=== PATIENT | female | born 2000 | race Caucasian/White ===

== ENCOUNTER 2024-12-18 08:43 | Emergency (ER) | payer OTHER, SELFPAY ==
[2024-12-18 08:46] VITALS: BP 138/78
[2024-12-18 09:00] VITALS: BP 134/89
--- NOTE | 2024-12-18 09:04 | ED.GENMED ---
History of Present Illness
General
Chief Complaint: Seizure
Time Seen by Provider: 12/18/24 09:03
History of Present Illness
History of Present Illness:
TIME OF INITIAL ENCOUNTER: 9 AM
HPI: Patient presents with seizure and has history of seizures. She was getting ready to go to her graduation at [employer] (grad school). She had a witnessed seizure. She bit her tongue. She feels somewhat confused currently. She normally takes
Lamictal 200 mg in the mornings and 400 mg at nighttime. She is not certain if she took her morning dose of Lamictal yet. She struck her head and has a headache. She denies any benzo or alcohol use. She is known to the neurologists at [facility] and
sees them once per year as she has not had a seizure now since 2019.
EXAM:
GENERAL: Appears postictal and just slightly confused
HEENT: Moist oral mucosa
CARDIOVASCULAR: No murmurs, tachycardic heart rate, regular rhythm, No chest wall tenderness
PULMONARY: No respiratory distress, breath sounds are clear and equal
ABDOMEN: Soft with no peritoneal signs, no tenderness
NEUROLOGIC: Fair strength all extremities, no coordination deficits
PSYCHIATRIC: Patient gives a reasonable history but details/memory are somewhat impaired
EXTREMITIES: Nontender, no edema, moves all extremities equally
SKIN: No rash, no lesions
NUMBER AND COMPLEXITY OF PROBLEMS ADDRESSED AT THE ENCOUNTER
� Chronic conditions affecting care: Seizure disorder
� Acute Exacerbation and/or Progression of Chronic Illness: This is an acute problem
� Differential Diagnosis includes: Breakthrough seizure, patient denies history of benzo/alcohol use to suggest withdrawal seizure, intracranial pathology
AMOUNT AND/OR COMPLEXITY OF DATA TO BE REVIEWED AND ANALYZED
� I performed an independent evaluation of and my interpretation is:
EKG:
CT: CAT scan of the brain shows no acute abnormality
X-rays:
Laboratory Studies: White count 4.6, hemoglobin normal, chemistries and hCG negative
Other:
� Review of other/old records: No old records available for review in [facility]
� Clinical information was obtained by an independent historian: I spoke to parents, at bedside
� Prescriptions/Medications Considered but not given:
� Further testing considered but not performed:
RISK OF COMPLICATIONS AND/OR MORBIDITY OR MORTALITY OF PATIENT MANAGEMENT
� Social determinants of health affecting care: Lives at home
� Discussion with other providers: I did notify the covering neurologist at [facility] for Dr. Lechuga. We had planned on increasing the Lamictal XR dosing to 300 mg in the mornings and continue the evening dose of 400 mg.
� Escalation of care including admission/observation vs risk of discharge considered: I later spoke to family and they tell me that she was up all night. She was to graduate [employer] today. Family states that when she was sleep
deprived in the past, she did have a seizure. Her mental status has been improving but headache persists despite Tylenol. No seizures while in the Emergency Department.
ANY OTHER UPDATES:
Phy Exam
Physical Exam
Physical Exam:
See HPI
Course
Orders/Labs/Results
Orders:
Orders
12/18/24 09:09
0.9% Sodium Chloride 1000 ml [Nss] 1,000 ml IV BOLUS
12/18/24 09:10
CT Head W/o Iv Contrast Urgent
Comment:
Reason For Exam: sz then head trauma; BALTAZAR
Test Result ONCE
12/18/24 09:32
Lamotrigine [Lamictal] 200 mg PO NOW STA
12/18/24 09:36
Complete Blood Count/With Diff Urgent
Comprehensive Metabolic Panel Urgent
HCG, Serum Qualitative Screen Urgent
Lamictal [Lamotrigine (Lamictal)] [S] Urgent
12/18/24 09:38
Acetaminophen [Tylenol] 1,000 mg PO NOW STA
12/18/24 09:44
Ipratropium/Albuterol Sulfate [Duoneb] 3 ml INH R NOW STA
MethylPREDNISolone PF [Solu-Medrol Pf] 125 mg IV NOW STA
12/18/24 09:45
Ipratropium/Albuterol Sulfate [Duoneb] 3 ml INH R NOW STA
Abnormal Lab Results
12/18/24
09:36
WBC 4.6 L 10^3/uL
(4.8-10.8)
Hct 36.7 L %
(37.0-47.0)
Absolute Lymphs (auto) 0.9 L 10^3/uL
(1.2-3.4)
Glucose 108 H mg/dl
(70-99)
12/18/24 09:36
12/18/24 09:36
Vital Signs
Initial and Last Documented VS:
Initial Vital Signs
Temp Pulse Resp BP Pulse Ox
36.8 C 116 18 138/78 97
12/18/24 08:46 12/18/24 08:46 12/18/24 08:46 12/18/24 08:46 12/18/24 08:46
Last Documented Vital Signs
Temp Pulse Resp BP Pulse Ox
36.8 C 106 20 120/88 100
12/18/24 08:46 12/18/24 11:00 12/18/24 11:00 12/18/24 11:00 12/18/24 11:00
*Critical Care Note
Total Time (30-74mins, 75-104mins- exclusive of procedures): Not Applicable
ED Attending Note
-
Portions of this chart may have been created with voice recognition software.� Occasional wrong word or��sound alike� substitutions may have occurred due to the inherent limitations of voice recognition software.
Discharge Plan
Departure
Patient Disposition: Home (Routine Discharge)
Date of Disposition: 12/18/24
Time of Disposition: 11:13
Patient with high blood pressure during this ER visit?: Yes
Discharge Problem:
Breakthrough seizure
Instructions: Seizures, Adult (DC), BLOOD PRESSURE
Prescriptions:
New
lamotrigine [Lamictal XR] 100 mg tablet extended release 24hr
100 mg PO DAILY Qty: 30 0RF
Activity Restrictions/Additional Instructions:
Basic lab work is normal. Lamictal level is pending. CAT scan of the brain was obtained as she struck her head but there is no sign of bleeding or any other concern. I did notify one of the neurologist at [facility] who recommends that you increase
Lamictal XR dosing to 300 mg in the morning and continue 400 mg in the evening. I sent a prescription for the 100 mg strength Lamictal XR. No driving for now until cleared by your neurologist and [facility]
Interventions
Interventions:
*Risk Screen - Suicide Last Done: 12/18/24 08:46
*General Assessment Last Done: 12/18/24 08:46
*Neglect/Abuse Screening Last Done: 12/18/24 08:46
*ED- Fall Risk Assessment Last Done: 12/18/24 10:12
*ED COVID-19 Vaccine History Last Done: 12/18/24 10:12
ED- Cardiac Assessment Last Done: 12/18/24 10:08
ED- Neurological Assessment Last Done: 12/18/24 10:08
ED- Pulmonary Assessment Last Done: 12/18/24 10:08
Discharge Date and Time
Print Language: SYRIAC
[2024-12-18 09:48] LABS: % Basophils 1.1 % (0-2); % Eosinophils 1.1 % (0-6); % Immature Granulocytes 0.2 % (0-0.5); % Lymphocytes 20.6 % (20.5-51.1); % Monocytes 8.1 % (1.7-9.3); % Neutrophils 68.9 % (42.2-75.2); Absolute Basophils 0.1 10^3/uL (0-0.2); Absolute Eosinophils 0.1 10^3/uL (0-0.7); Absolute Lymphocytes 0.9 10^3/uL (1.2-3.4); Absolute Monocytes 0.4 10^3/uL (0.1-0.6); Absolute Neutrophils 3.2 10^3/uL (1.4-6.5); Hematocrit 36.7 % (37.0-47.0); Hemoglobin 12.9 g/dL (12.0-16.0); Mean Corp Hgb Conc. 35.1 g/dL (33.0-37.0); Mean Corpuscular Hgb 29.5 pg (27.0-31.0); Nucleated Red Blood Cells % 0 %; Platelet Count 184 10^3/uL (130-400); Red Blood Cell Count 4.37 10^6/uL (4.20-5.40); Red Cell Dist. Width 11.8 % (11.5-14.5); White Blood Cell Count 4.6 10^3/uL (4.8-10.8)
[2024-12-18] MEDS: TYLENOL 1000 MG PO (09:54)
[2024-12-18] MEDS: LAMICTAL 200 MG PO (09:54)
[2024-12-18] MEDS: NSS 1000 IV (09:55)
[2024-12-18 10:00] VITALS: BP 122/81
[2024-12-18 10:04] LABS: HCG, Serum Qualitative Screen Negative
[2024-12-18 10:11] VITALS: BMI 23.5
[2024-12-18 10:12] LABS: ALT (SGPT) 22 U/L (0-35); AST (SGOT) 22 U/L (14-36); Albumin 4.6 g/dl (3.5-5.0); Alkaline Phosphatase 53 U/L (38-126); Blood Urea Nitrogen 15 mg/dl (7-17); Calcium 9.5 mg/dl (8.4-10.2); Carbon Dioxide 25 mmol/L (22-30); Chloride 107 mmol/L (98-107); Estimated Creatinine Clearance 84 ml/min; Glucose 108 mg/dl (70-99); Potassium 3.9 mmol/L (3.5-5.1); Sodium 141 mmol/L (135-145); Total Bilirubin 0.3 mg/dl (0.2-1.3); eGFR > 60.00
--- NOTE | 2024-12-18 10:54 | EDRN ---
Dr. Patiño in room w/ pt at this time
[2024-12-18 11:00] VITALS: BP 120/88
--- NOTE | 2024-12-18 11:12 | EDRN ---
Pt drinking ice water and just now up to BR to void.
== END 2024-12-18 11:38 | disposition home or self-care (01) ==
LOC: EMR 08:43
PROVIDERS: EMERGENCY PHYSICIAN Emergency Medicine; FAMILY PHYSICIAN Nurse Practitioner Adult Health
DX: G40.909 Epilepsy, unspecified, not intractable, without status epilepticus (principal); R51.9 Headache, unspecified; S09.90XA Unspecified injury of head, initial encounter; R41.0 Disorientation, unspecified; X58.XXXA Exposure to other specified factors, initial encounter; R03.0 Elevated blood-pressure reading, without diagnosis of hypertension; Z88.0 Allergy status to penicillin
CPT/HCPCS: 99284; 96360; 70450; 80053; 80175; 84703; 85025